=== PATIENT | female | born 1980 | race Caucasian/White ===

== ENCOUNTER 2021-07-17 07:15 | Emergency (ER) | payer OTHER ==
[2021-07-17] MEDS ORDERED: KEFLEX250 MG PO (08:22)
== END 2021-07-17 11:36 | disposition home or self-care (01) ==
LOC: FER 07:15
DX: L03.114 Cellulitis of left upper limb (principal); F17.210 Nicotine dependence, cigarettes, uncomplicated
CPT/HCPCS: 99283